=== PATIENT | male | born 1955 | race Caucasian/White ===

== ENCOUNTER → 2016-11-13 | Outpatient (CLI) | payer BC ==
[~2016-11-13] MED LIST: ASPIRIN EC81 MG PO; CELEXA20 MG PO; COLACE100 MG PO; CPAP INH; ECOTRIN325 MG; GLUCOVANCE 5-51 EACH PO; HYDROCHLOROTH12.5 M1 PO; JANUVIA 100 MG100 MG PO; MIRALAX17 GM PO; PEPCID20 MG PO; ROXICODONE 5MG (5 MG PO; TRICOR145 MG PO; VICTOZA 3-0.6 MG/0.1 SUB-Q; ZESTRIL40 MG PO
== END | disposition disaster alternative care site (69) ==
LOC: GRAD 13:59
DX: M16.11 Unilateral primary osteoarthritis, right hip (principal)